=== PATIENT | male | born 1980 | race Caucasian/White ===

== ENCOUNTER 2017-01-18 02:21 | Emergency (ER) | payer SELFPAY ==
--- NOTE | 2017-01-27 23:29 | ER ---
ADMIT: 01/18/2017 RM/LOC: ER [facility] MR#: [id number] [facility] [address] [place] [id number] [address] [address] [place] [address] Emergency Room Report SEX: M AGE: 36 : 1980 DATE: 01/18/2017 ADDENDUM: See T-sheet for complete H and P. A 36-year-old male, comes in for laceration that he sustained to his right upper eyelid/face. The patient admits he was drinking this evening, he had several drinks, was trying to get around to go to bed and lost his balance, fell, he thinks he struck his face on his bed. He remembers the incident. Denies any loss of consciousness. Denies any other injuries. This happened shortly before arrival in the ER. He has no other complaints. PHYSICAL EXAMINATION: VITAL SIGNS: Were unremarkable. EYES: He does have a laceration to his right upper lateral eyelid between his eyelashes on his eyebrow. It is approximately 2.5 cm in length, it is fairly superficial. There is no debris present. See procedure note on T-sheet. Wound was closed, it was well-approximated, and patient was discharged with instructions to take care of the wound with suture removal in 6 to 7 days. DIAGNOSES: 1. Facial laceration, right upper eyelid. 2. Alcohol intoxication. The patient is discharged in stable, improved condition. Sha Mayorga MD/ nicki JOB #: [id number] CC: Sha Mayorga MD, Attending Physician Lakshmi Jones MD, Family Physician
== END 2017-01-18 04:15 | disposition home or self-care (01) ==
LOC: ER 02:21
PROC: 08QNXZZ Repair Right Upper Eyelid, External Approach (ICD-10-PCS; principal; 2017-01-18)
DX: S01.111A Laceration without foreign body of right eyelid and periocular area, initial encounter (principal); F10.129 Alcohol abuse with intoxication, unspecified; W17.89XA Other fall from one level to another, initial encounter; Y92.009 Unspecified place in unspecified non-institutional (private) residence as the place of occurrence of the external cause